=== PATIENT | female | born 1985 | race Caucasian/White ===

== ENCOUNTER 2019-03-24 07:54 | Emergency (ER) | payer OTHER ==
[~2019-03-24] VITALS: Ht 165.1 cm; Wt 83.0 kg
[2019-03-24] MEDS ORDERED: CHOL10003 PO (08:15)
[2019-03-24] MEDS ORDERED: PREN1TAB28 PO (08:15)
[2019-03-24] MEDS ORDERED: CYAN25009 PO (08:16)
--- NOTE | 2019-03-24 08:44 | NUR ---
C-COLLAR APPLIED TO PATIENT'S NECK. PT TO CT. SBAR HAND-OFF REPORT GIVEN TO JANET ESCOTO.
[2019-03-24] MEDS ORDERED: KETOROLAC 30 MG/1 ML IM ONE (09:00)
[2019-03-24] MEDS ORDERED: DIAZEPAM 5 MG TABLET PO ONE (09:00)
[2019-03-24 09:50] LABS: HCG UR SG <= 1.005 (1.003-1.030)
--- NOTE | 2019-03-24 10:07 | NUR ---
report received from jed Huang collar removed by [facility]. pt declines toradol/valium, states she preferrs motrin. pt a&o, resps even and unlabored, rates neck pain at 3/10 at this time. neuro intact. awaiting further orders from [facility] at this time.
--- NOTE | 2019-03-24 10:48 | NUR ---
CARE FOR DC ONLY PROVIDED. PT SITTING UP ON GURNEY. NO ACUTE DISTRESS NOTED. NO IV TO DC. REVIEWED DC INSTRUCTIONS WITH PT. UNDERSTANDING VERBALIZED. PT LEFT AMB, GAIT STEADY.
[2019-03-24 10:50] VITALS: BP 117/59
== END 2019-03-24 10:52 | disposition home or self-care (01) ==
LOC: ED 10:13
DX: S16.1XXA Strain of muscle, fascia and tendon at neck level, initial encounter (principal); R11.0 Nausea; S09.90XA Unspecified injury of head, initial encounter; V49.49XA Driver injured in collision with other motor vehicles in traffic accident, initial encounter; Y93.89 Activity, other specified; Y92.488 Other paved roadways as the place of occurrence of the external cause; Y99.8 Other external cause status
CPT/HCPCS: 70450; 72125; 81025; 99284

== ENCOUNTER 2019-08-24 05:45 | Day surgery (SDC) | payer OTHER ==
[~2019-08-24] VITALS: Ht 165.1 cm; Wt 79.4 kg
[~2019-08-24 05:45] MED LIST: CHOL10003 PO; CYAN25009 PO; PREN1TAB28 PO
[2019-08-24] MEDS ORDERED: LACTATED RINGERS 1,000 ML IV SCH ×2 (06:40→07:10)
[2019-08-24] MEDS ORDERED: LIDOCAINE-MPF 2% ,5ML ONE (06:59)
[2019-08-24] MEDS ORDERED: PROPOFOL 10 MG/ML, 20ML ONE (06:59)
[2019-08-24] MEDS ORDERED: GLYCOPYRROLATE 0.2MG/1ML, 5ML ONE (06:59)
[2019-08-24] MEDS ORDERED: DEXAMETHASONE 4 MG/ML, 1ML ONE (06:59)
[2019-08-24] MEDS ORDERED: MIDAZOLAM 1 MG/ML, 2ML ONE (06:59)
[2019-08-24] MEDS ORDERED: OXYTOCIN 10 UNITS/ML, 1ML ONE (07:00)
[2019-08-24] MEDS ORDERED: MISOPROSTOL 200 MCG TABLET ONE (07:00)
[2019-08-24] MEDS ORDERED: METHYLERGONOVINE 0.2 MG/ML IM ONE (07:01)
[2019-08-24 07:02] VITALS: BP 116/73
[2019-08-24] MEDS ORDERED: LIDOCAINE 1%, 20ML ONE (07:02)
[2019-08-24] MEDS ORDERED: CHLORHEXIDINE 15 ML UDC ONE (07:13)
[2019-08-24 07:21] LABS: BASOPHILS # (AUTO) 0.06 x10^3/uL (0-0.1); BASOPHILS % (AUTO) 1 % (0-1); EOSINOPHILS # (AUTO) 0.07 x10^3/uL (0-0.4); EOSINOPHILS % (AUTO) 1 % (1-7); LYMPHOCYTES # (AUTO) 1.64 x10^3/uL (1-3.4); LYMPHOCYTES % (AUTO) 29 % (22-44); MD NO; MEAN CORPUSCULAR HEMOGLOBIN 30.9 pg (27.0-34.8); MEAN CORPUSCULAR HGB CONC 33.3 g/dL (32.4-35.8); MEAN CORPUSCULAR VOLUME 92.8 fL (80-100); MEAN PLATELET VOLUME 7.9 fL (7.4-10.4); MONOCYTES # (AUTO) 0.32 x10^3/uL (0.2-0.8); MONOCYTES % (AUTO) 6 % (2-9); NEUTROPHILS # (AUTO) 3.68 x10^3/uL (1.8-6.8); NEUTROPHILS % (AUTO) 64 % (42-75); PLATELET COUNT 193 x10^3/uL (130-400); RED BLOOD COUNT 3.88 x10^6/uL (3.82-5.3); RED CELL DISTRIBUTION WIDTH 12.4 % (9.6-15.2)
[2019-08-24 07:26] LABS: MICROSCOPIC INDICATED
[2019-08-24 07:28] LABS: ALBUMIN 3.6 g/dL (3.4-5.0); ANION GAP 4 mmol/L (5-15); CALCIUM 8.4 mg/dL (8.5-10.1); CHLORIDE 110 mmol/L (98-107)
[2019-08-24 07:30] LABS: ALANINE AMINOTRANSFERASE 25 U/L (12-78); ALKALINE PHOSPHATASE 43 U/L (45-117); BILIRUBIN,TOTAL 0.3 mg/dL (0.2-1.0); CREATININE 0.66 mg/dL (0.55-1.02); TOTAL PROTEIN 7.3 g/dL (6.4-8.2)
[2019-08-24] MEDS ORDERED: DIAZEPAM 5 MG/ML, 2ML IVPush PRN (07:30)
[2019-08-24] MEDS ORDERED: DIPHENHYDRAMINE 50 MG/ML, 1ML IVPush PRN (07:30)
[2019-08-24] MEDS ORDERED: KETOROLAC 30 MG/1 ML IVPush PRN (07:30)
[2019-08-24] MEDS ORDERED: OXYcodone 5 MG/5 ML ORAL.SOL UDC PO PRN (07:30)
[2019-08-24] MEDS ORDERED: hydrALAzine 20 MG/ML, 1ML IV PRN (07:30)
[2019-08-24] MEDS ORDERED: FENTANYL PF 100 MCG/2ML IV PRN (07:30)
[2019-08-24] MEDS ORDERED: HYDROcodone/APAP 7.5-325MG/15ML UDC PO PRN (07:30)
[2019-08-24] MEDS ORDERED: EPHEDRINE 50 MG/ML, 1ML IVPush PRN (07:30)
[2019-08-24] MEDS ORDERED: HALOPERIDOL 5 MG/ML IV PRN (07:30)
[2019-08-24] MEDS ORDERED: HYDROmorphone 1 MG/ML, 1ML INJ IVPush PRN (07:30)
[2019-08-24] MEDS ORDERED: EPHEDRINE 50 MG/ML, 1ML IM PRN (07:30)
[2019-08-24] MEDS ORDERED: ONDANSETRON 2MG/ML, 2ML IVPush PRN (07:30)
[2019-08-24] MEDS ORDERED: LABETALOL 5MG/ML, 20ML IV PRN (07:30)
[2019-08-24] MEDS ORDERED: METOCLOPRAMIDE 5 MG/ML, 2ML IVPush PRN (07:30)
[2019-08-24] MEDS ORDERED: ALBUTEROL/IPRATROPIUM 2.5MG/0.5MG, 3 ML NPPB PRN (07:30)
[2019-08-24] MEDS ORDERED: CHLORHEXIDINE 15 ML UDC MM ONE (07:30)
[2019-08-24] MEDS ORDERED: MEPERIDINE/PF 25MG/0.5ML IVPush PRN (07:30)
[2019-08-24] MEDS ORDERED: LORazepam 2 MG/ML, 1ML IVPush PRN (07:30)
[2019-08-24] MEDS ORDERED: MIDAZOLAM 1 MG/ML, 2ML IV PRN (07:30)
[2019-08-24] MEDS ORDERED: ACETAMINOPHEN 325 MG TABLET PO PRN (07:30)
[2019-08-24] MEDS ORDERED: METOCLOPRAMIDE 5 MG/ML, 2ML ONE (08:06)
[2019-08-24] MEDS ORDERED: KETOROLAC 30 MG/1 ML ONE (08:12)
[2019-08-24] MEDS ORDERED: FENTANYL PF 100 MCG/2ML ONE (08:18)
== END 2019-08-24 11:25 | disposition home or self-care (01) ==
LOC: OUT 05:45
PROVIDERS: ATTEND Obstetrics & Gynecology
DX: O02.1 Missed abortion (principal); Z11.59 Encounter for screening for other viral diseases; Z3A.01 Less than 8 weeks gestation of pregnancy; G43.909 Migraine, unspecified, not intractable, without status migrainosus; Z98.890 Other specified postprocedural states; Z79.899 Other long term (current) drug therapy; Z72.89 Other problems related to lifestyle
CPT/HCPCS: 36415; 59820; 76998; 80053; 81001; 85025; 86850; 86900; 87086; 87635; 88305; J1100; J1885; J2250; J2590; J2704; J2765; J3010; J7120; J2210

== ENCOUNTER 2019-08-28 19:45 | Emergency (ER) | payer OTHER ==
[~2019-08-28] VITALS: Ht 165.1 cm; Wt 79.9 kg
[2019-08-28 21:01] VITALS: BP 119/49
== END 2019-08-28 21:51 | disposition home or self-care (01) ==
LOC: ED 20:34
DX: M79.661 Pain in right lower leg (principal); R07.89 Other chest pain; R06.00 Dyspnea, unspecified; R60.0 Localized edema
CPT/HCPCS: 99284

== ENCOUNTER 2020-09-15 10:17 | Inpatient (IN) | payer OTHER ==
[~2020-09-15] VITALS: Ht 165.1 cm; Wt 86.4 kg
[2020-09-16] MEDS ORDERED: PENICILLIN GK 5,000,000 UNITS in DEXTROSE 5% 100 ML IVPB ONE (09:00)
[2020-09-16] MEDS ORDERED: D5%-LACTATED RINGERS 1,000 ML IV SCH (09:00)
[2020-09-16] MEDS ORDERED: TERBUTALINE 1 MG/ML, 1ML SQ PRN (09:00)
[2020-09-16] MEDS ORDERED: TERBUTALINE 1 MG/ML, 1ML IVPush PRN (09:00)
[2020-09-16] MEDS ORDERED: OXYTOCIN 30U/ 0.9% NaCL 500ML 500 ML IV ONE (09:00)
[2020-09-16] MEDS ORDERED: FENTANYL PF 100 MCG/2ML IV PRN (09:00)
[2020-09-16] MEDS ORDERED: MISOPROSTOL 25 MCG TABLET ONE (09:28)
[2020-09-16] MEDS ORDERED: PLEASE ENTER HEIGHT AND WEIGHT MC SCH (09:30)
[2020-09-16 09:37] LABS: BASOPHILS % (AUTO) 1 % (0-1); EOSINOPHILS % (AUTO) 1 % (1-7); LYMPHOCYTES % (AUTO) 21 % (22-44); MEAN CORPUSCULAR HGB CONC 34.4 g/dL (32.4-35.8); MEAN PLATELET VOLUME 9.1 fL (7.4-10.4); MONOCYTES % (AUTO) 6 % (2-9); NEUTROPHILS % (AUTO) 73 % (42-75); PLATELET COUNT 162 x10^3/uL (130-400); RED BLOOD COUNT 3.87 x10^6/uL (3.82-5.3); RED CELL DISTRIBUTION WIDTH 13.7 % (9.6-15.2)
[2020-09-16] MEDS ORDERED: OXYTOCIN 30U/ 0.9% NaCL 500ML 0 ML ONE (09:41)
[2020-09-16] MEDS: MISOPROSTOL 25 MCG TABLET VG PRN ×2 (10:00→15:20)
[2020-09-16 10:29] VITALS: BP 119/70
[2020-09-16] MEDS ORDERED: NEWBORN KIT ONE (11:14)
[2020-09-16] MEDS: PENICILLIN GK 2,500,000 UNITS in DEXTROSE 5% 100 ML IVPB SCH ×3 (14:18→22:16)
[2020-09-16] MEDS ORDERED: OXYTOCIN 30U/ 0.9% NaCL 500ML 500 ML ONE (18:47)
[2020-09-16] MEDS ORDERED: OXYTOCIN 30U/ 0.9% NaCL 500ML 500 ML IV PRN (19:00)
[2020-09-16] MEDS ORDERED: BUPIVACAINE 0.25% ONE (19:41)
[2020-09-16] MEDS ORDERED: FENTANYL/BUPIV./NS/PF 250 ML EPIDCONT ONE (19:41)
[2020-09-16] MEDS: LACTATED RINGERS 1,000 ML IV SCH (19:44)
[2020-09-16] MEDS ORDERED: LACTATED RINGERS 1,000 ML INTUTE SCH (21:30)
[2020-09-16] MEDS ORDERED: LACTATED RINGERS 1,000 ML INTUTE PRN (21:30)
[2020-09-16] MEDS ORDERED: NALOXONE 0.4 MG/ML, 1ML IVPush PRN (22:00)
[2020-09-16] MEDS ORDERED: LACTATED RINGERS 1,000 ML IVBOLUS PRN (22:00)
[2020-09-16] MEDS ORDERED: DIPHENHYDRAMINE 50 MG/ML, 1ML IVPush PRN (22:00)
[2020-09-16] MEDS ORDERED: EPHEDRINE 50 MG/ML, 1ML IVPush PRN (22:00)
[2020-09-16] MEDS ORDERED: FENTANYL/BUPIV./NS/PF 250 ML EPIDCONT SCH (22:00)
[2020-09-16] MEDS ORDERED: ONDANSETRON 2MG/ML, 2ML IVPush PRN (22:00)
[2020-09-17] MEDS: PENICILLIN GK 2,500,000 UNITS in DEXTROSE 5% 100 ML IVPB SCH ×4 (01:58→14:17)
[2020-09-17] MEDS: LACTATED RINGERS 1,000 ML IV SCH ×4 (03:09→22:00)
[2020-09-17] MEDS ORDERED: METOCLOPRAMIDE 5 MG/ML, 2ML ONE (17:30)
[2020-09-17] MEDS ORDERED: SODIUM CITRATE/CITRIC ACID 15 ML UDC ONE (17:30)
[2020-09-17] MEDS ORDERED: METOCLOPRAMIDE 5 MG/ML, 2ML IV ONE (18:00)
[2020-09-17] MEDS ORDERED: SODIUM CITRATE/CITRIC ACID 30 ML UDC PO ONE (18:00)
[2020-09-17] MEDS ORDERED: CALCIUM CARBONATE 500 MG TAB.CHEW PO PRN (19:30)
[2020-09-17] MEDS ORDERED: ACETAMINOPHEN 325 MG TABLET PO PRN (19:30)
[2020-09-17] MEDS ORDERED: SIMETHICONE 80 MG CHEW TAB PO PRN (19:30)
[2020-09-17] MEDS ORDERED: MISOPROSTOL 200 MCG TABLET PR PRN (19:30)
[2020-09-17] MEDS ORDERED: OXYcodone/APAP 5/325MG TABLET PO PRN ×2 (19:30)
[2020-09-17] MEDS ORDERED: RHOGAM FROM BLOOD BANK 1 NOTE EA IM/IV ONE (19:30)
[2020-09-17] MEDS ORDERED: ONDANSETRON 2MG/ML, 2ML IV PRN (19:30)
[2020-09-17] MEDS ORDERED: MAGNESIUM HYDROXIDE 8%, 30ML UDC PO PRN (19:30)
[2020-09-17] MEDS ORDERED: DIPH,PERTUSS(ACELL),TET VAC/PF NC IM-VACC PRN (19:30)
[2020-09-17] MEDS: IBUPROFEN 600 MG TABLET PO PRN (20:37)
[2020-09-17] MEDS: OXYTOCIN 30U/ 0.9% NaCL 500ML 500 ML IV SCH (20:57)
[2020-09-17 21:50] VITALS: BP 115/73
[2020-09-17] MEDS: ACETAMINOPHEN 325 MG TABLET PO PRN (23:25)
[2020-09-17] MEDS: DOCUSATE 100 MG CAPSULE PO PRN (23:25)
[2020-09-18 02:00] VITALS: BP 119/70
[2020-09-18 03:30] LABS: BASOPHILS % (AUTO) 0 % (0-1); EOSINOPHILS % (AUTO) 0 % (1-7); LYMPHOCYTES % (AUTO) 9 % (22-44); MEAN CORPUSCULAR HEMOGLOBIN 31.2 pg (27.0-34.8); MONOCYTES % (AUTO) 5 % (2-9); NEUTROPHILS % (AUTO) 86 % (42-75); PLATELET COUNT 146 x10^3/uL (130-400); RED CELL DISTRIBUTION WIDTH 13.6 % (9.6-15.2)
[2020-09-18] MEDS: OXYTOCIN 30U/ 0.9% NaCL 500ML 500 ML IV SCH ×2 (05:30→15:30)
[2020-09-18] MEDS: LACTATED RINGERS 1,000 ML IV SCH ×3 (06:00→22:00)
[2020-09-18] MEDS: IBUPROFEN 600 MG TABLET PO PRN ×3 (06:15→19:29)
[2020-09-18 08:15] VITALS: BP 118/68
[2020-09-18] MEDS: PRENATAL VIT/IRON/FA 1 EACH TABLET PO SCH (08:23)
[2020-09-18] MEDS: DOCUSATE 100 MG CAPSULE PO PRN ×2 (08:24→19:28)
[2020-09-18] MEDS: ACETAMINOPHEN 325 MG TABLET PO PRN ×2 (08:24→15:47)
[2020-09-18 12:22] VITALS: BP 113/70
[2020-09-18 13:58] VITALS: BP 107/48
[2020-09-18 15:58] VITALS: BP 107/48
[2020-09-18 19:45] VITALS: BP 102/66
[2020-09-19] MEDS: OXYTOCIN 30U/ 0.9% NaCL 500ML 500 ML IV SCH ×2 (01:30→02:00)
[2020-09-19] MEDS: IBUPROFEN 600 MG TABLET PO PRN ×2 (01:56→07:58)
[2020-09-19] MEDS: LACTATED RINGERS 1,000 ML IV SCH ×2 (02:00→02:01)
[2020-09-19 07:56] VITALS: BP 126/79
[2020-09-19] MEDS: PRENATAL VIT/IRON/FA 1 EACH TABLET PO SCH (07:58)
[2020-09-19] MEDS: DOCUSATE 100 MG CAPSULE PO PRN (07:58)
[2020-09-19] MEDS ORDERED: IBUP-1222 PO (09:38)
== END 2020-09-19 10:38 | disposition home or self-care (01) | DRG 807 ==
LOC: EDIP 09-16 08:40 → LDIP 09-16 08:50 → 2NW 09-17 21:25
PROVIDERS: ADMIT Obstetrics & Gynecology; ATTEND Obstetrics & Gynecology
PROC: 10E0XZZ Delivery of Products of Conception, External Approach (ICD-10-PCS; principal; 2020-09-17)
PROC: 3E0P7VZ Introduction of Hormone into Female Reproductive, Via Natural or Artificial Opening (ICD-10-PCS; 2020-09-17)
PROC: 3E033VJ Introduction of Other Hormone into Peripheral Vein, Percutaneous Approach (ICD-10-PCS; 2020-09-17)
PROC: 10907ZC Drainage of Amniotic Fluid, Therapeutic from Products of Conception, Via Natural or Artificial Opening (ICD-10-PCS; 2020-09-17)
PROC: 10H07YZ Insertion of Other Device into Products of Conception, Via Natural or Artificial Opening (ICD-10-PCS; 2020-09-17)
PROC: 3E0R3BZ Introduction of Anesthetic Agent into Spinal Canal, Percutaneous Approach (ICD-10-PCS; 2020-09-17)
PROC: 00HU33Z Insertion of Infusion Device into Spinal Canal, Percutaneous Approach (ICD-10-PCS; 2020-09-17)
PROC: 0HQ9XZZ Repair Perineum Skin, External Approach (ICD-10-PCS; 2020-09-17)
DX: O24.420 Gestational diabetes mellitus in childbirth, diet controlled (principal); Z37.0 Single live birth; O69.1XX0 Labor and delivery complicated by cord around neck, with compression, not applicable or unspecified; O99.824 Streptococcus B carrier state complicating childbirth; Z3A.39 39 weeks gestation of pregnancy; O70.0 First degree perineal laceration during delivery; F32.9 Major depressive disorder, single episode, unspecified; F41.9 Anxiety disorder, unspecified; O99.344 Other mental disorders complicating childbirth; Z23 Encounter for immunization; Z20.822 Contact with and (suspected) exposure to COVID-19
CPT/HCPCS: 36415; 82962; 85025; 86592; 86850; 86900; 87635; G0378; J2540; J1200; J2590; J7120